=== PATIENT | female | born 1990 | race American Indian/Alaskan Native ===

== ENCOUNTER 2018-07-08 17:57 | Emergency (ER) | payer BC ==
[2018-07-08 18:04] VITALS: RESP 18; O2SAT 99
--- NOTE | 2018-07-08 18:40 | C.PDOC ---
History Of Present Illness 27 y/o female presents to the ED complaining of rash surrounding both eyes since yesterday. Patient states she had her eyelashes done on Friday, and the stylist used a wooden applicator that she suspected was not sterile. The next day she developed swelling to both eyelids, which has since improved but the rash persists. She denies any difficulty breathing, fever, tongue/lip swelling, sob, or chills. Time Seen by Provider: 07/08/18 18:17 Chief Complaint (Nursing): Abnormal Skin Integrity History Per: Patient History/Exam Limitations: no limitations Onset/Duration Of Symptoms: Days Current Symptoms Are (Timing): Better Past Medical History Reviewed: Historical Data, Nursing Documentation, Vital Signs Vital Signs: Last Vital Signs Temp 99.5 F 07/08/18 19:22 Pulse 97 H 07/08/18 19:22 Resp 18 07/08/18 19:22 BP 113/77 07/08/18 19:22 Pulse Ox 99 07/08/18 19:22 - Medical History PMH: Hyperthyroidism Family History: States: No Known Family Hx - Social History Hx Alcohol Use: No Hx Substance Use: No - Immunization History Hx Tetanus Toxoid Vaccination: No Hx Influenza Vaccination: No Hx Pneumococcal Vaccination: No Review Of Systems Constitutional: Negative for: Fever, Chills Eyes: Positive for: Eyelid Inflammation (now improved). Negative for: Pain, Vision Change ENT: Negative for: Mouth Swelling, Throat Swelling Respiratory: Negative for: Shortness of Breath Gastrointestinal: Negative for: Vomiting Skin: Positive for: Rash (facial) Physical Exam - Physical Exam Appears: Non-toxic, No Acute Distress Skin: Warm, Dry, Rash (Erymethatous maculopapular rash to periorbital areas) Head: Atraumatic, Normacephalic Eye(s): bilateral: Normal Inspection (with no significant eyelid inflammation), PERRL, EOMI Nose: Normal Oral Mucosa: Moist Tongue: No Swelling Lips: No Swelling Throat: Normal (with no swelling, airway patent), No Erythema Neck: Normal ROM, Supple Chest: Symmetrical Cardiovascular: Rhythm Regular Respiratory: Normal Breath Sounds, No Accessory Muscle Use, Other (no respiratory distress) Extremity: Normal ROM Extremity: Bilateral: Atraumatic, Normal Color And Temperature, Normal ROM Neurological/Psych: Oriented x3, Normal Speech ED Course And Treatment O2 Sat by Pulse Oximetry: 99 (RA) Pulse Ox Interpretation: Normal Progress Note: Administered 50 mg PO Benadryl. Patient is resting comfortably, tolerating PO, has no shortness of breath, has no intra-oral swelling, no stridor. Counseled patient regarding diagnosis and treatment plan. Advised patient to have lashes removed for full improvement in symptoms. There is understanding of and agreement with discharge plan. Patient was advised to avoid potential allergens, and to follow up with physician in 1-2 days. Disposition Counseled Patient/Family Regarding: Diagnosis, Need For Followup, Rx Given - Disposition Disposition: HOME/ ROUTINE Disposition Time: 18:38 Condition: STABLE Additional Instructions: Remove the eye lashes. Follow up with your primary medical doctor or clinic in 2 -5 days for further evaluation. Take medications as prescribed. Return to the emergency department at any time if symptoms persist or worsen. Prescriptions: DiphenhydrAMINE [Benadryl] 25 mg PO Q6 #20 cap Instructions: Skin Rash (DC) Forms: [employer] (Spanish) - POA Present On Arrival: None - Clinical Impression Clinical Impression: Contact dermatitis - PA / [employer] / Resident Statement MD/DO has reviewed & agrees with the documentation as recorded. - Scribe Statement The provider has reviewed the documentation as recorded by the Scribe (Sue Alvarado) All medical record entries made by the Scribe were at my direction and personally dictated by me. I have reviewed the chart and agree that the record accurately reflects my personal performance of the history, physical exam, medical decision making, and the department course for this patient. I have also personally directed, reviewed, and agree with the discharge instructions and disposition.
[2018-07-08 19:31] VITALS: BP 113/77; PULSE 97; TEMP 99.5
== END 2018-07-08 19:20 | disposition home or self-care (01) ==
LOC: C.ER 17:57
DX: L25.9 Unspecified contact dermatitis, unspecified cause (principal)